=== PATIENT | male | born 1975 | race Native Hawaiian/Other Pacific Islander ===

== ENCOUNTER 2017-03-14 10:31 | Observation (INO) | payer OTHER ==
[~2017-03-14] VITALS: Ht 175.3 cm; Wt 88.5 kg
[2017-03-14 11:28] VITALS: BP 122/81; TEMP 98.2; Ht 175.3 cm; Wt 88.5 kg
[2017-03-14 12:00] VITALS: BP 122/81; TEMP 98.2
[2017-03-14 12:10] LABS: PLATELET COUNT 166 K/uL (142-355)
[2017-03-14 12:19] LABS: POTASSIUM 3.8 mmol/L (3.6-5.2); SODIUM 133 mmol/L (136-145)
[2017-03-14 16:00] VITALS: BP 110/70; TEMP 98
--- NOTE | 2017-03-14 19:44 | NUR ---
DR WALKER CALLED WITH D/C INSTRUCTIONS @ 1530, HER OFFICE WAS SUPPOSED TO SEND MEDICATION ORDERS TO [facility] FOR METFORMIN 500MG PO BID X30, GLIPIZIDE 10MG PO BID X30. I CALLED [facility] TO ORDER MEDS FROM DISCHARGE AND HIS MEDICATIONS HAD NOT BEEN SENT TO PHARMACY. PHENERGAN 25MG PO Q6HR PRN NAUSEA, ZOFRAN 4MG PO Q6HR PRN NAUSEA WERE ALSO CALLED IN TO [facility] BEFORE DISCHARGE @[phone] IV D/C'D, TIP INTACT, NO REDNESS, SWELLING OR EDEMA NOTED, STERILE DRESSING APPLIED TO IV SITE AND SECURED WITH TAPE. NAD NOTED, NO C/O VOICED. 1854 PT WAS DISCHARGED FROM HOSPITAL BY WHEELCHAIR, TO HOME WITH FAMILY.
== END 2017-03-14 18:55 | disposition home or self-care (01) ==
LOC: MED/SURG 10:31
PROVIDERS: ADMIT Family Medicine
DX: E86.0 Dehydration (principal); A08.4 Viral intestinal infection, unspecified; E11.65 Type 2 diabetes mellitus with hyperglycemia
CPT/HCPCS: 80053; 81000; 85027; 96365; 96367; 99220; G0378; G0379

== ENCOUNTER 2017-08-04 21:30 | Emergency (ER) | payer OTHER ==
[~2017-08-04] VITALS: Ht 175.3 cm; Wt 93.0 kg
[2017-08-04 22:10] LABS: PLATELET COUNT 166 K/uL (142-355)
[2017-08-04 22:29] LABS: POTASSIUM 3.7 mmol/L (3.6-5.2); SODIUM 133 mmol/L (136-145)
[2017-08-04 23:02] VITALS: BP 122/77; TEMP 98.1
== END 2017-08-04 23:11 | disposition home or self-care (01) ==
LOC: EDBD 21:30 → ED 21:30
DX: E11.9 Type 2 diabetes mellitus without complications (principal)
CPT/HCPCS: 36415; 80053; 81000; 85027; 99283

== ENCOUNTER 2017-10-19 15:01 | Outpatient (CLI) | payer OTHER ==
[2017-10-19 15:31] LABS: PLATELET COUNT 189 K/uL (142-355)
== END 2017-10-19 22:04 | disposition home or self-care (01) ==
LOC: CT 15:01
PROVIDERS: Family Medicine
DX: R59.1 Generalized enlarged lymph nodes (principal); E11.9 Type 2 diabetes mellitus without complications; E55.9 Vitamin D deficiency, unspecified; R53.83 Other fatigue; I10 Essential (primary) hypertension
CPT/HCPCS: 36415; 80053; 80061; 81000; 82306; 82607; 83036; 84443; 85027; Q9963

== ENCOUNTER 2018-02-01 13:07 | Emergency (ER) | payer OTHER ==
[~2018-02-01] VITALS: Ht 175.3 cm; Wt 93.0 kg
[2018-02-01 13:10] VITALS: TEMP 97.9
[2018-02-01] MEDS ORDERED: FORTAMET500 MG PO (13:26)
[2018-02-01] MEDS ORDERED: GLIP10TA55 PO (13:26)
[2018-02-01] MEDS ORDERED: LISITAB PO (13:27)
[2018-02-01] MEDS ORDERED: ZANTAC300 MG PO (13:28)
[2018-02-01 14:38] LABS: PLATELET COUNT 190 K/uL (142-355)
[2018-02-01 14:48] LABS: POTASSIUM 3.5 mmol/L (3.6-5.2)
[2018-02-01 18:07] VITALS: BP 121/76
== END 2018-02-01 18:07 | disposition home or self-care (01) ==
LOC: ED 13:07
PROVIDERS: Family Medicine
DX: R10.9 Unspecified abdominal pain (principal); K29.70 Gastritis, unspecified, without bleeding
CPT/HCPCS: 36415; 80053; 82550; 84484; 85027; 85379; 93005; 96374; 96375; 99284; J2270; J2405; Q9963

== ENCOUNTER 2018-07-06 08:19 | Outpatient (CLI) | payer OTHER ==
[~2018-07-06 08:19] MED LIST: FORTAMET500 MG PO; GLIP10TA55 PO; LISITAB PO; ZANTAC300 MG PO
== END 2018-07-06 23:00 | disposition home or self-care (01) ==
LOC: MRI 08:19
DX: M25.462 Effusion, left knee (principal); M54.17 Radiculopathy, lumbosacral region

== ENCOUNTER 2018-09-10 08:41 | Outpatient (CLI) | payer OTHER | END 2018-09-10 22:53 | disposition home or self-care (01) | LOC: CT 08:41 | DX: M54.16 Radiculopathy, lumbar region (principal) ==

== ENCOUNTER 2018-11-23 10:32 | Outpatient (CLI) | payer OTHER ==
[~2018-11-23] VITALS: Ht 175.3 cm; Wt 88.9 kg
[2018-11-23 10:55] VITALS: BP 132/89; TEMP 97.8
== END 2018-11-23 16:30 | disposition home or self-care (01) ==
LOC: RESP 10:32 → INF 10:32
DX: R82.4 Acetonuria (principal)
CPT/HCPCS: 36600; 82805; 96360; 96361

== ENCOUNTER 2019-02-10 07:26 | Emergency (ER) | payer OTHER ==
[~2019-02-10] VITALS: Ht 175.3 cm; Wt 88.9 kg
[2019-02-10 07:28] VITALS: TEMP 97.7
[2019-02-10 08:07] LABS: PLATELET COUNT 177 K/uL (142-355)
[2019-02-10 08:13] LABS: POTASSIUM 4.3 mmol/L (3.6-5.2); SODIUM 134 mmol/L (136-145)
[2019-02-10 10:12] VITALS: BP 120/78
== END 2019-02-10 10:12 | disposition home or self-care (01) ==
LOC: ED 07:26
PROVIDERS: Emergency Medicine
DX: M94.0 Chondrocostal junction syndrome [Tietze] (principal)
CPT/HCPCS: 36415; 80053; 82550; 82553; 84484; 85027; 93005; 96365; 96374; 99284; J1885

== ENCOUNTER 2019-07-28 07:28 | Emergency (ER) | payer OTHER ==
[~2019-07-28] VITALS: Ht 175.3 cm; Wt 86.2 kg
[2019-07-28 07:38] VITALS: TEMP 97.9
[2019-07-28 08:12] LABS: PLATELET COUNT 167 K/uL (142-355)
[2019-07-28 08:23] LABS: POTASSIUM 4.3 mmol/L (3.6-5.2)
[2019-07-28 09:20] VITALS: BP 154/69
== END 2019-07-28 09:23 | disposition home or self-care (01) ==
LOC: ED 07:28
PROVIDERS: Emergency Medicine
DX: R10.32 Left lower quadrant pain (principal); K59.00 Constipation, unspecified
CPT/HCPCS: 80053; 81000; 82150; 83690; 85027; 99283

== ENCOUNTER 2019-11-29 18:10 | Outpatient (CLI) | payer BC | END 2019-11-29 19:11 | disposition home or self-care (01) | LOC: LABW 18:10 | DX: M10.071 Idiopathic gout, right ankle and foot (principal); M10.072 Idiopathic gout, left ankle and foot | CPT/HCPCS: 36415; 84550; 85651 ==

== ENCOUNTER 2019-12-27 05:54 | Outpatient (CLI) | payer BC | END 2019-12-27 20:36 | disposition home or self-care (01) | LOC: LABW 05:54 | DX: M10.071 Idiopathic gout, right ankle and foot (principal); M10.072 Idiopathic gout, left ankle and foot | CPT/HCPCS: 36415; 84550; 85651 ==

== ENCOUNTER 2020-03-12 18:03 | Outpatient (CLI) | payer BC ==
[2020-03-12 18:33] LABS: PLATELET COUNT 233 K/uL (142-355)
[2020-03-12 20:21] LABS: POTASSIUM 4.4 mmol/L (3.6-5.2)
== END 2020-03-12 23:35 | disposition home or self-care (01) ==
LOC: LAB 18:03
PROVIDERS: Podiatrist
DX: Z01.810 Encounter for preprocedural cardiovascular examination (principal); Z01.811 Encounter for preprocedural respiratory examination; Z01.812 Encounter for preprocedural laboratory examination
CPT/HCPCS: 36415; 80053; 83036; 84550; 85027; 85651

== ENCOUNTER 2020-06-11 06:37 | Emergency (ER) | payer BC ==
[~2020-06-11] VITALS: Ht 175.3 cm; Wt 93.0 kg
[2020-06-11 07:40] VITALS: BP 102/72; TEMP 98.5
== END 2020-06-11 07:40 | disposition home or self-care (01) ==
LOC: ED 06:37
PROC: 2W3MX1Z Immobilization of Left Lower Extremity using Splint (ICD-10-PCS; principal; 2020-06-11)
DX: S86.812A Strain of other muscle(s) and tendon(s) at lower leg level, left leg, initial encounter (principal)
CPT/HCPCS: 99282; 99283

== ENCOUNTER 2020-08-27 09:32 | Outpatient (CLI) | payer BC ==
[2020-08-27 10:08] LABS: PLATELET COUNT 207 K/uL (142-355)
[2020-08-27 10:21] LABS: POTASSIUM 4.7 mmol/L (3.6-5.2)
== END 2020-08-27 19:05 | disposition home or self-care (01) ==
LOC: LABW 09:32
PROVIDERS: ATTEND Nurse Practitioner Family
DX: R10.9 Unspecified abdominal pain (principal)
CPT/HCPCS: 36415; 80053; 82150; 83690; 85027; 86318

== ENCOUNTER 2020-10-24 07:45 | Observation (INO) | payer BC ==
[~2020-10-24] VITALS: Ht 175.3 cm; Wt 93.0 kg
[2020-10-24 07:48] VITALS: BP 139/88; TEMP 97.1
[2020-10-24 08:35] LABS: POTASSIUM 4.6 mmol/L (3.6-5.2); SODIUM 137 mmol/L (136-145)
[2020-10-24 08:44] LABS: PLATELET COUNT 185 K/uL (142-355)
[2020-10-24 10:26] VITALS: BP 145/91
--- NOTE | 2020-10-24 14:16 | NUR ---
1130 PT TO FLOOR VIA WC. ADMISSION ASSESSMENT COMPLETED. 1145 PT LEFT AMA. PT STATED HE WAS GOING TO [place] TO THE ER
== END 2020-10-24 11:48 | disposition left against medical advice (07) ==
LOC: ED 07:45 → MED/SURG 10:15 → UNDODEPER 10:55 → MED/SURG 11:48
PROVIDERS: ADMIT Hospitalist; ATTEND Internal Medicine
DX: R20.0 Anesthesia of skin (principal); R07.89 Other chest pain; H53.8 Other visual disturbances; E11.9 Type 2 diabetes mellitus without complications; K21.9 Gastro-esophageal reflux disease without esophagitis; E78.49 Other hyperlipidemia
CPT/HCPCS: 36415; 80053; 82550; 83880; 84484; 85027; 85610; 85730; 87635; 93005; 96374; 99220; 99284; G0378; J2405; U0003

== ENCOUNTER 2021-03-04 08:12 | Outpatient (CLI) | payer OTHER | END 2021-03-04 19:06 | disposition home or self-care (01) | LOC: LABW 08:12 | PROVIDERS: ATTEND Specialist | DX: E78.2 Mixed hyperlipidemia (principal); I25.10 Atherosclerotic heart disease of native coronary artery without angina pectoris | CPT/HCPCS: 36415; 80061; 80076 ==

== ENCOUNTER 2021-06-24 12:29 | Outpatient (CLI) | payer OTHER | END 2021-06-24 20:15 | disposition home or self-care (01) | LOC: RAD 12:29 | PROVIDERS: ATTEND Nurse Practitioner Primary Care | DX: M25.561 Pain in right knee (principal) ==

== ENCOUNTER 2021-08-01 10:16 | Outpatient (CLI) | payer OTHER | END 2021-08-01 20:01 | disposition home or self-care (01) | LOC: RAD 10:16 | PROVIDERS: ATTEND Nurse Practitioner Family | DX: M25.512 Pain in left shoulder (principal) ==

== ENCOUNTER 2021-09-09 05:17 | Outpatient (CLI) | payer OTHER | END 2021-09-09 18:55 | disposition home or self-care (01) | LOC: LABW 05:17 | PROVIDERS: ATTEND Nurse Practitioner Adult Health | DX: E78.2 Mixed hyperlipidemia (principal) | CPT/HCPCS: 36415; 80061; 80076 ==

== ENCOUNTER 2021-10-30 12:36 | Outpatient (CLI) | payer OTHER ==
[~2021-10-30] VITALS: Ht 175.3 cm; Wt 84.1 kg
== END 2021-10-30 18:56 | disposition home or self-care (01) ==
LOC: INF 12:36
PROVIDERS: ATTEND Nurse Practitioner Family
DX: U07.1 COVID-19 (principal); Z23 Encounter for immunization
CPT/HCPCS: 96365; Q0247

== ENCOUNTER 2021-12-31 10:39 | Outpatient (CLI) | payer OTHER ==
[~2021-12-31] VITALS: Ht 175.3 cm; Wt 84.8 kg
[2021-12-31 11:26] LABS: POTASSIUM 3.9 mmol/L (3.6-5.2)
== END 2021-12-31 18:57 | disposition home or self-care (01) ==
LOC: INF 10:39
PROVIDERS: ATTEND Family Medicine
DX: A08.4 Viral intestinal infection, unspecified (principal)
CPT/HCPCS: 36415; 80053; 96360; J2405

== ENCOUNTER 2022-07-31 09:10 | Outpatient (CLI) | payer OTHER ==
[2022-07-31 09:37] LABS: PLATELET COUNT 131 K/uL (142-355)
== END 2022-07-31 23:08 | disposition home or self-care (01) ==
LOC: LABW 09:10
PROVIDERS: ATTEND Family Medicine
DX: R50.9 Fever, unspecified (principal)
CPT/HCPCS: 85027; 87502

== ENCOUNTER 2023-01-15 16:25 | Observation (INO) | payer OTHER ==
[~2023-01-15] VITALS: Ht 175.3 cm; Wt 88.2 kg
[2023-01-15 16:30] VITALS: BP 151/83; TEMP 98.9
[2023-01-15 16:46] VITALS: BP 113/70
[2023-01-15 16:46] LABS: PLATELET COUNT 193 K/uL (142-355)
[2023-01-15 16:50] LABS: POTASSIUM 3.6 mmol/L (3.6-5.2); SODIUM 134 mmol/L (136-145)
[2023-01-15 17:06] VITALS: BP 134/73
[2023-01-15 17:28] VITALS: BP 123/68
[2023-01-15 19:51] VITALS: BP 139/71; TEMP 99; Ht 175.3 cm; Wt 88.2 kg
[2023-01-15] MEDS ORDERED: ZINC50 M1 PO (20:29)
[2023-01-15 20:30] VITALS: BP 139/71; TEMP 99
[2023-01-15] MEDS ORDERED: VITAMIN C1000 MG PO (20:30)
[2023-01-15] MEDS ORDERED: VITAMIN D3 PO (20:31)
[2023-01-15] MEDS ORDERED: TURMERIC500 M1 PO (20:32)
[2023-01-15] MEDS ORDERED: GRALISE600 MG PO (20:32)
[2023-01-15] MEDS ORDERED: METF500T PO (20:33)
[2023-01-15] MEDS ORDERED: METO25TA4 PO (20:33)
[2023-01-15] MEDS ORDERED: LISI10TA11 PO (20:33)
[2023-01-15] MEDS ORDERED: NITR0.4S2 SL (20:34)
[2023-01-15] MEDS ORDERED: LIPITOR40 MG PO (20:34)
[2023-01-16 00:30] VITALS: BP 105/49; TEMP 98.7
[2023-01-16 04:30] VITALS: BP 125/55; TEMP 98.4
[2023-01-16 08:30] VITALS: BP 117/65; TEMP 98.7
[2023-01-16] MEDS ORDERED: TIZA4TAB5 PO (08:32)
== END 2023-01-16 10:55 | disposition home or self-care (01) ==
LOC: ED 16:25 → MED/SURG 18:26
PROVIDERS: ADMIT Family Medicine; ATTEND Internal Medicine
DX: R07.89 Other chest pain (principal); I25.10 Atherosclerotic heart disease of native coronary artery without angina pectoris; E11.65 Type 2 diabetes mellitus with hyperglycemia; N18.31 Chronic kidney disease, stage 3a; I12.9 Hypertensive chronic kidney disease with stage 1 through stage 4 chronic kidney disease, or unspecified chronic kidney disease; F17.210 Nicotine dependence, cigarettes, uncomplicated
CPT/HCPCS: 36415; 80053; 82550; 82948; 84484; 85027; 85610; 85730; 93005; 99221; 99284; G0378

== ENCOUNTER 2023-04-01 16:54 | Outpatient (CLI) | payer OTHER ==
[~2023-04-01 16:54] MED LIST changes: +GRALISE600 MG PO; +LIPITOR40 MG PO; +LISI10TA11 PO; +METF500T PO; +METO25TA4 PO; +NITR0.4S2 SL; +TIZA4TAB5 PO; +TURMERIC500 M1 PO; +VITAMIN C1000 MG PO; +VITAMIN D3 PO; +ZINC50 M1 PO
== END 2023-04-01 20:12 | disposition home or self-care (01) ==
LOC: RAD 16:54
PROVIDERS: ATTEND Physician Assistant
DX: M54.16 Radiculopathy, lumbar region (principal)